=== PATIENT | female | born 1970 | race Caucasian/White ===

== ENCOUNTER → 2024-05-28 06:16 | Day surgery (SDC) | payer OTHER, SELFPAY ==
[2024-05-28 10:34] LABS: Glucose - Point of Care 139 mg/dl (70-99)
== END ==
LOC: GI 06:16
PROVIDERS: ATTENDING PHYSICIAN Internal Medicine
DX: Z12.11 Encounter for screening for malignant neoplasm of colon (principal); D12.0 Benign neoplasm of cecum; D12.3 Benign neoplasm of transverse colon; K63.5 Polyp of colon; K62.1 Rectal polyp
CPT/HCPCS: 45385; 45380; 88305; 82962

== ENCOUNTER → 2024-10-01 10:43 | Outpatient (REF) | payer OTHER, SELFPAY ==
--- NOTE | 2024-10-01 13:08 | EEG.RPT ---
Electroencephalogram Report
Recording
Date of EE10/01/24
Type of EEG: Routine
Length of EEG recordin minutes
Done with Video Recording: Yes
Patient Status: Outpatient
Recording Conditions: Awake and Drowsy
Hyperventilation Performed: No
Photic Stimulation Performed: Yes
Report
LESS THAN 1 HOUR EEG REPORT
LESS THAN 1 HOUR EEG INTERPRETATION:
Unremarkable EEG for age
CLINICAL CORRELATION:
A normal EEG does not rule out a diagnosis of epilepsy. If clinical suspicion for seizure persists, a prolonged recording may be warranted.
Clinical correlation is advised.
METHODS:
A 21 channel digitized electroencephalogram (EEG) was performed using the 10/20 international system of electrode placement and one-lead of ECG recorded. Video was recorded. Persyst quantitative EEG analysis was performed.
ELECTROENCEPHALOGRAPHER IMPRESSION(S):
Quality of study
Good
Background
There was an unremarkable anterior-posterior voltage gradient of alpha frequency.
With eye opening the background activity changed to a low voltage mixture of frequencies.
There were no significant asymmetries of background activity noted.
Sleep
Drowsiness present
Hyperventilation
No driving
Photic Stimulation
No driving
ECG
Normal sinus rhythm
== END ==
LOC: EEG 10:43
PROVIDERS: ATTENDING PHYSICIAN Physician Assistant
DX: H53.9 Unspecified visual disturbance (principal); Z87.898 Personal history of other specified conditions
CPT/HCPCS: 95816